=== PATIENT | male | born 1945 | race Caucasian/White ===

== ENCOUNTER 2017-12-29 04:22 | Inpatient (IN) | payer OTHER, MEDICARE ==
[~2017-12-29] VITALS: Ht 172.7 cm; Wt 124.4 kg
[~2017-12-29 04:22] MED LIST: AMLODIPINE BESYL5 M1 PO; ATENOLOL50 M1 PO; CELEBREX200 M1 PO; CHLORDIAZEPOXID25 M3 PO; NEURONTIN300 M1 PO; ULTRAM50 M1 PO
--- NOTE | 2017-12-29 10:06 | Admission Core Measures ---
Acute Coronary Syndrome (CM) ACS Core Measures Acute Coronary Syndrome Diagnosis No Congestive Heart Failure (NEW) CHF Core Measures Congestive Heart Failure Diagnosis No Cerebrovascular Accident (NEW) CVA Core Measures CVA/TIA Diagnosis No Venous Thromboembolism VTE Core Soumya (View Protocol) VTE Risk Factors Surgery No Mechanical VTE Prophylaxis d/t N/A MechProphylax Ordered No VTE Pharm Prophylaxis d/t NA PharmProphylax ordered Problem List As ranked by this Provider includes Assessment & Plan 1. Unilateral primary osteoarthritis, right hip HOME MEDS Home Med List Amlodipine Besylate 5 MG TABLET 1 TAB PO DAILY BP (Reported) Atenolol 50 MG TABLET 1 TAB PO DAILY BP (Reported) Celecoxib (Celebrex) 200 MG CAPSULE 1 CAP PO DAILY DEPRESSION (Reported) Chlordiazepoxide HCl 25 MG CAPSULE 2 CAP PO QPM BP (Reported) Gabapentin (Neurontin) 300 MG CAPSULE 1 CAP PO TID PAIN (Reported) Tramadol HCl (Ultram) 50 MG TABLET 1 TAB PO BIDP PRN PAIN (Reported)
--- NOTE | 2017-12-29 10:25 | Surg Short-stay <48hrs Dis Sum ---
Visit Information Visit Dates Admission Date: 12/29/17 Discharge Date: 01/01/18 Surgical Short Stay DC Summary Admission Diagnosis: Primary osteoarthritis right hip Final Diagnosis: Same, status post right total hip arthroplasty Procedure(s): Right total hip arthroplasty Summary/Significant Findings: Patient was admitted to the hospital for an elective total right hip replacement. Procedure was tolerated well and patient was transferred to a general surgical floor. Diet was advanced and tolerated. Physical therapy performed evaluation and treatment. At time of hospital discharge, vital signs were stable, neurovascular status was intact, and pain was controlled with the use of oral pain medications. Condition at Discharge: Stable Discharge Disposition: SNF Discharge instructions provided to patient/family: Yes Post discharge follow-up plan: Follow up with Dr. Jackson in 6 weeks from date of surgery. Please call his office to schedule/confirm this appointment.
[2017-12-29] MEDS ORDERED: PROTONIX20 M1 PO (10:27)
[2017-12-29] MEDS ORDERED: MIRALAX17 G1 PO (10:27)
[2017-12-29] MEDS ORDERED: COLACE100 M1 PO (10:27)
--- NOTE | 2017-12-29 10:29 | Patient Discharge Instructions ---
Discharge Instructions General Discharge Information You were seen/treated for: Right hip pain related to osteoarthritis You had these procedures: Right total hip arthroplasty Watch for these problems: Worsening pain despite pain medications Inability to bear wear on operative leg Redness or drainage from incision Fever > 101 F Other wound care: Keep incision clean and dry. Dressing will be changed 48hr after surgery, then you may shower. Do not soak wound- no tub baths/swimming. Daily dry dressings recommended. Watch for signs of wound infection Special Instructions: Take Aspirin, as prescribed for clot prevention Take Miralax and Colace to prevent constipation. Take Dilaudid, as needed for pain control. Take Protonix for GI protection while taking high dose aspirin. Diet Continue normal diet: Yes Activity Activity Self Limited: Yes Activity Limited to: Weight bear as tolerated Additional ACTIVITY Info: Use rolling walker as needed Acute Coronary Syndrome Inclusion Criteria At DC or during hospital stay patient has or had the following: ACS DIAGNOSIS No Discharge Core Measures Meds if any: Prescribed or Continued at Discharge Meds if any: NOT Prescribed or Continued at Discharge Congestive Heart Failure Inclusion Criteria At DC or during hospital stay patient has or had the following: CHF DIAGNOSIS No Discharge Core Measures Meds if any: Prescribed or Continued at Discharge Meds if any: NOT Prescribed or Continued at Discharge Cerebrovascular accident Inclusion Criteria At DC or during hospital stay patient has or had the following: CVA/TIA Diagnosis No Discharge Core Measures Meds if any: Prescribed or Continued at Discharge Meds if any: NOT Prescribed or Continued at Discharge Venous thromboembolism Inclusion Criteria VTE Diagnosis No VTE Type NONE VTE Confirmed by (Test) NONE Discharge Core Measures - Per Current guidelines, there needs to be overlap - treatment for the first 5 days of Warfarin therapy. - If discharged on Warfarin prior to 5 days of - overlap therapy, the patient will need to be - assessed for post discharge needs including - *Post discharge parental anticoagulation - *Warfarin and/or parental anticoagulation education - *Follow up date to check INR post discharge At least 5 days overlap therapy as Inpatient No Meds if any: Prescribed or Continued at Discharge Note: Overlap Therapy is Warfarin and Anticoagulant Meds if any: NOT Prescribed or Continued at Discharge
[2017-12-29] MEDS ORDERED: ASPIRIN325 M2 PO (11:32)
[2017-12-29] MEDS ORDERED: DILAUDID2 M1 PO (11:32)
--- NOTE | 2017-12-29 14:35 | Operative Report ---
Operative/Inv Procedure Report Surgery Date: 12/29/17 Name of Procedure: Right total hip replacement Pre-Operative Diagnosis: Primary right hip DJD Post-Operative Diagnosis: Same Estimated Blood Loss: 300 Surgeon/Salon Coordinator: Manuel MALONEY,González Holder Anesthesia: block Operative/Procedure Note Note: Description of Procedure: The patient was taken to the operating room and positively identified. After induction of spinal anesthesia and administration of appropriate pre-operative antibiotics, the patient was positioned supine on the operating room table and all bony prominences were well padded. After performing a surgical timeout, the right lower extremity was prepped and draped in the usual sterile fashion. A direct anterior approach was made to the right hip. The incision was carried sharply through superficial soft tissues to the level of the fascia. Meticulous hemostasis was maintained with Bovie electocautery. The fascia over the tensor fascia rosy muscle was opened sharply and the interval between the TFL and the sartorius was entered bluntly taking care to stay lateral to the lateral femoral cutaneous nerve. Retractors were placed around the femoral neck and the pericapsular fat was identified. The ascending branches of the lateral femoral circumflex vessels were identified and carefully coagulated. The pericapsular fat and anterior capsule were then resected. A napkin ring osteotomy was performed and the femoral head was removed without difficulty. Attention was then turned to the acetabulum. After appropriate placement of retractors, the acetabulum was exposed. Soft tissue was cleaned from the acetabular margin and notch. Overhanging osteophytes were removed and the teardrop was exposed. The acetabulum was then sequentially reamed to accept a 60 mm Martita Tritanium hemispherical cluster shell. This was impacted into place in the appropriate position and a single screw was used for supplemental fixation. The cup was then fit with a 36 mm Trident X3 zero degree polyethylene insert. Attention was then turned to the femur. After performing the appropriate ligament releases, the proximal femur was exposed. It was then sequentially broached to accept a size 5 [place] Anato stem. This was trialed for leg length and stability. The trial component was removed and the final component was impacted into place. The trunnion was carefully cleaned and fit with a 36 mm, + 5 Biolox delta ceramic femoral head. The hip was reduced and put through a full range of motion and found to be stable. The articular space was then irrigated with sterile saline. The periarticular soft tissues were infilitrated with Marcaine. The fascial layer was closed with interrupted #1 vicryl suture and the skin was re-approximated with interrupted 2 -0 vicryl. The skin was closed with a running 3-0 V-Lock suture. Steri-strips and a sterile dressing were applied. The patient was awakened and taken to the recovery room in satisfactory condition.
--- NOTE | 2017-12-29 16:01 | RADIOLOGY REPORT ---
EXAMINATION: XR HIP, RIGHT CLINICAL INFORMATION: Status post total hip arthroplasty. COMPARISON: None TECHNIQUE: Two views of the right hip. FINDINGS: Evaluation on the crosstable lateral view is significantly limited. The patient is status post total hip arthroplasty with the prosthetic components well seated within the [place] bones. Alignment is anatomic. No hardware failure or [place] bone fracture is seen. Some chucho are seen projected over the right groin. IMPRESSION: Anatomic alignment status post total hip arthroplasty with no hardware failure or [place] bone fracture seen.
--- NOTE | 2017-12-29 16:45 | PN- Orthopedic ---
Subjective Subjective: POC Feeling well, minimal pain. no n/v/cp/sob. no oob yet. dtv postop. in pacu, awaiting room assignment . hungry Objective Vital Signs and I&Os Intake & Output HR: 76 BP: 134/57 12/29 1600 12/29 0800 12/29 0000 12/28 1600 12/28 0800 12/28 0000 Intake Total Output Total Balance Patient 260 lb Weight Physical Exam: GEN- NAD CARD- S1S2 RRR PULM- CTAB ABD- obese, soft nt EXT- R hip dressing CDI, nt, ice pack in place. calves soft nt, alps on. feet warm. gross sensation intact/equal bl. +dorsi/plantar flexion equal bl Assessment/Plan Assessment/Plan A- POD0 sp R DOMENIC, with controlled pain, due to void/eat/ambulate postop, otherwise stable P- prn pain meds home meds pt, wbat, oob ivf due to void strict I&Os asa 325bid reg diet as tolerated dsg change pod2 will dw attending Core Measures Venous Thromboembolism VTE Risk Factors Surgery No Mechanical VTE Prophylaxis d/t N/A MechProphylax Ordered No VTE Pharm Prophylaxis d/t NA PharmProphylax ordered
[2017-12-29 22:12] VITALS: BP 118/78
[2017-12-29 23:40] VITALS: BP 118/77
[2017-12-30 02:04] VITALS: BP 90/70
[2017-12-30 07:04] VITALS: BP 113/63
[2017-12-30 08:00] VITALS: BP 113/63
[2017-12-30 08:39] LABS: ABSOLUTE BASOPHIL COUNT 0 /CUMM (0.0-0.2); ABSOLUTE EOSINOPHIL COUNT 0 /CUMM (0.0-0.7); ABSOLUTE GRANULOCYTE CT 9.6 /CUMM (1.4-6.5); ABSOLUTE LYMPH COUNT 1.1 /CUMM (1.2-3.4); ABSOLUTE MONOCYTE COUNT 1.9 /CUMM (0.10-0.60); BASOPHIL % 0 % (0.0-2.0); EOSINOPHIL % 0.1 % (0-5); GRANULOCYTE % 75.9 % (42.2-75.2); HEMATOCRIT 31.1 % (42-52); MEAN CORPUSCULAR HGB 34.7 PG (27.0-31.0); MEAN PLATELET VOLUME 9.8 FL (7.4-10.4); PLATELET COUNT 126 /CUMM (130-400); RBC DISTRIBUTION WIDTH 13.4 % (11.5-14.5); RED BLOOD CELL CT 3.05 /CUMM (4.70-6.10); WHITE BLOOD CELL COUNT 12.6 /CUMM (4.8-10.8)
--- NOTE | 2017-12-30 08:43 | PN- Orthopedic ---
Subjective Subjective: Awake,, alert No specific complaints Pain is tolerable with meds Has not ambulated with PT yet - finished late yesterday Objective Vital Signs and I&Os Vital Signs Date Time Temp Pulse Resp B/P B/P Pulse O2 O2 Flow FiO2 Mean Ox Delivery Rate 12/30 0704 97.8 74 20 113/63 97 Room Air 12/30 0204 97.9 69 20 90/70 98 CPAP 12/30 0021 66 96 12/30 0000 96 CPAP 2.0L 12/29 2340 98.0 83 20 118/77 98 CPAP 12/29 2225 64 97 12/29 2212 98.0 80 18 118/78 98 Nasal 2.0L Cannula 12/29 2148 Nasal 2.0L Cannula 12/29 1745 97 Nasal 2.0L Cannula Intake & Output 12/30 1600 12/30 0800 12/30 0000 12/29 1600 12/29 0800 12/29 0000 Intake Total 710 465 Output Total 250 600 Balance 460 -135 Intake, IV 650 225 Intake, Oral 60 240 Output, Urine 250 600 Patient 260 lb Weight Weight Reported by Patient Measurement Method Physical Exam: vss, afebrile General: alert and oriented times three Chest: clear anteriorly bilaterally, RRR Abd: soft, good bs Ext: warm, no edema, no calf tenderness, normosensate, good 5/5 MALA BLE Wd: dressed, dry Current Medications: Current Medications Sig/David Start time Last Medication Dose Route Stop Time Status Admin Acetaminophen 0 .STK-MED ONE 12/29 0931 DC PO Acetaminophen 975 MG ONCE 12/29 0000 DC PO 12/29 2358 Amlodipine Besylate 5 MG DAILY 12/30 1000 AC PO Aspirin 325 MG BID 12/29 2200 AC 12/29 PO 2205 Atenolol 50 MG DAILY 12/30 1000 CAN PO Atenolol 25 MG BID 12/30 1000 AC PO Cefazolin Sodium 2 GM IQ8 12/29 1600 DC 12/30 N/A 1 UNIT IV 12/30 0029 0011 Cefazolin Sodium 3,000 MG ONCE 12/29 0000 DC IV 12/29 235 Chlordiazepoxide HCl 50 MG QPM 12/29 2200 AC 12/29 PO 220 Dexamethasone 4 MG .STK-MED ONE 12/29 1122 DC IM 12/29 1123 Dextrose/Sodium 1,000 ML .[id number] 12/29 1815 DC 12/30 Chloride IV 0434 Docusate Sodium 100 MG BID 12/29 2200 AC 12/29 PO 2204 Fentanyl Citrate 100 MCG .STK-MED ONE 12/29 1122 DC IM 12/29 1123 Gabapentin 300 MG Q8 12/29 1400 AC 12/30 PO 0554 Hydromorphone HCl 2 MG Q4P PRN 12/29 1815 AC 12/29 PO 1836 Hydromorphone HCl 4 MG Q4P PRN 12/29 1815 AC 12/30 PO 0554 Lorazepam 0 Q1P PRN 12/29 2000 AC IV Midazolam HCl 2 MG .STK-MED ONE 12/29 1122 DC IM 12/29 1123 Morphine Sulfate 2 MG Q2P PRN 12/29 1815 AC 12/29 IV 2204 Ondansetron HCl 4 MG Q6P PRN 12/29 1815 AC IV Oxycodone HCl 0 .STK-MED ONE 12/29 0932 DC PO Oxycodone HCl 10 MG ONCE 12/29 0000 DC PO 12/29 2359 Polyethylene Glycol 17 GM DAILY 12/30 1000 AC PO Polyethylene Glycol 17 GM DAILY NEEDED PRN 12/29 1815 DC PO Promethazine HCl 12.5 MG Q6P PRN 12/29 1815 AC IV 01/05 1014 Tranexamic Acid 2,000 MG .STK-MED ONE 12/29 1121 DC IV 12/29 1122 Assessment/Plan Assessment/Plan 72yo male s/p R THR pod 1 asa 325mg po bid for dvt ppx pain management PT - WBAT dc planning - likely rehab Core Measures Venous Thromboembolism VTE Risk Factors Surgery No Mechanical VTE Prophylaxis d/t N/A MechProphylax Ordered No VTE Pharm Prophylaxis d/t NA PharmProphylax ordered
[2017-12-30 10:00] VITALS: BP 113/63
[2017-12-30 16:28] VITALS: BP 124/70
[2017-12-30 22:29] VITALS: BP 118/68
[2017-12-31 06:04] VITALS: BP 110/70
--- NOTE | 2017-12-31 12:42 | PN- Orthopedic ---
Subjective Subjective: No acute overnight events reported. Pain has been controlled. Denies chest pain, shortness of breath and difficulty breathing. Denies nasuea and vomitting. Has been voiding. Has been ambulating. Objective Vital Signs and I&Os Vital Signs Date Time Temp Pulse Resp B/P B/P Pulse O2 O2 Flow FiO2 Mean Ox Delivery Rate 12/31 0838 98.1 60 20 110/70 12/31 0837 98.1 60 20 110/70 12/31 0604 98.1 60 20 110/70 98 Room Air 12/30 2229 97.7 74 18 118/68 94 Room Air 12/30 2145 140/76 12/30 1628 98.7 78 18 124/70 97 Room Air 12/30 1441 Room Air Intake & Output 12/31 1600 12/31 0812/31 0000 12/30 1600 12/30 0800 12/30 0000 Intake Total 480 1010 710 465 Output Total 300 600 600 250 600 Balance -300 -120 410 460 -135 Intake, IV 10 650 225 Intake, Oral 480 1000 60 240 Number 1 0 Bowel Movements Output, Urine 300 600 600 250 600 Patient 274 lb 260 lb Weight Weight Reported by Patient Measurement Method Physical Exam: General: Alert and oriented x3, no acute distress Cardiac: RRR, s1s2 Pulm: CTA bialterally ABD: Non-tender, non-distended Extremities: Moves all extremities, distal sensation grossly intact. Skin warm and well perfused. DP pulses palpable bialterally. Bilateral calves soft and non-tender. Surgical site: Right hip. Dressing stained, dry. Thigh compartment soft, ecchymotic. New dressing applied. Assessment/Plan Assessment/Plan This is a 72 year old male, POD 2, s/p R THR. PMH signficant for depression Ortho stable Core Measures Venous Thromboembolism VTE Risk Factors Surgery No Mechanical VTE Prophylaxis d/t N/A MechProphylax Ordered No VTE Pharm Prophylaxis d/t NA PharmProphylax ordered
[2017-12-31 14:03] VITALS: BP 124/78
[2017-12-31 22:00] VITALS: BP 117/60
[2018-01-01 07:17] VITALS: BP 114/62
--- NOTE | 2018-01-01 08:10 | PN- Orthopedic ---
Subjective Subjective: Patient reports postop pain, which is well controlled. Tolerating a diet, without any nausea or vomiting. Ambulating with PT. Passing flatus and voiding spontanously, denies BM. Denies msucle cramps, spasms or headache. Offers no other complaints. Objective Vital Signs and I&Os Vital Signs Date Time Temp Pulse Resp B/P B/P Pulse O2 O2 Flow FiO2 Mean Ox Delivery Rate 01/01 914 97.9 63 18 114/62 01/01 0914 114/62 01/01 0717 97.9 63 18 114/62 97 12/31 2200 98.7 71 18 117/60 95 Room Air 12/31 2109 72 117/60 12/31 1403 99.3 87 20 124/78 92 Room Air Intake & Output 01/01 1600 01/01 0800 01/01 0000 12/31 1600 12/31 0800 12/31 0000 Intake Total 350 450 880 480 Output Total 850 500 675 300 600 Balance -500 -50 205 -300 -120 Intake, Oral 350 450 880 480 Number 1 Bowel Movements Output, Urine 850 500 675 300 600 Patient 274 lb Weight Physical Exam: Gen - eating breakfast in nad Cardiac - S1S2 noted Lungs - CTAB Ext - R hip dressing c/d/i, moves all extremities, motor an sensory intact, compartment soft, alps/teds in place, no edema or calf tenderness Current Medications: Current Medications Sig/David Start time Last Medication Dose Route Stop Time Status Admin Amlodipine Besylate 5 MG DAILY 12/30 1000 AC 01/01 PO 0914 Aspirin 325 MG BID 12/29 2199 AC 01/01 PO 0914 Atenolol 25 MG BID 12/30 1000 AC 01/01 PO 0914 Bisacodyl 10 MG ONCE ONE 01/01 0845 DC 01/01 AL 01/01 0846 0913 Chlordiazepoxide HCl 50 MG QPM 12/29 2199 AC 12/31 PO 2111 Docusate Sodium 100 MG BID 12/29 2199 AC 01/01 PO 0914 Gabapentin 300 MG Q8 12/29 1400 AC 01/01 PO 0513 Hydromorphone HCl 2 MG Q4P PRN 12/29 181 AC 12/29 PO 1836 Hydromorphone HCl 4 MG Q4P PRN 12/29 1815 AC 01/01 PO 0913 Lorazepam 0 Q1P PRN 12/30 1999 AC IV Morphine Sulfate 2 MG Q2P PRN 12/29 181 DC 12/31 IV 2319 Ondansetron HCl 4 MG Q6P PRN 12/29 181 AC IV Polyethylene Glycol 17 GM DAILY 12/30 1000 AC 01/01 PO 0914 Potassium Chloride 20 MEQ BID 12/31 1155 AC 01/01 PO 0914 Promethazine HCl 12.5 MG Q6P PRN 12/29 181 AC IV 01/05 1014 Sodium Phosphate 1 UNIT ONCE PRN 01/01 0845 AC AL Results Last 48 Hours of Labs: Laboratory Tests 01/01 0748 Chemistry Sodium (137 - 145 mmol/L) 131 L Potassium (3.5 - 5.1 mmol/L) 3.8 Chloride (98 - 107 mmol/L) 93 L Carbon Dioxide (22 - 30 mmol/L) 30 Anion Gap (5 - 16) 7 BUN (9 - 20 mg/dL) 12 Creatinine (0.7 - 1.2 mg/dL) 0.7 Estimated GFR (>60 ml/min) > 60 BUN/Creatinine Ratio (7 - 25 %) 17.1 Assessment/Plan Assessment/Plan 72 M POD 3 s/p R THR who is recovering well, hyponatremia noted, asx at this time Reg diet Pain regimen prn Sodium chloride tab 1000 mg once Dulcolax/fleet enema for constipation Asa 325mg po bid for dvt ppx PT, WBAT Repeat bep wednesday to recheck hyponatremia Anticipate d/c to rehab today Core Measures Venous Thromboembolism VTE Risk Factors Surgery No Mechanical VTE Prophylaxis d/t N/A MechProphylax Ordered No VTE Pharm Prophylaxis d/t NA PharmProphylax ordered
[2018-01-01 11:20] VITALS: BP 114/62
== END 2018-01-01 13:50 | DRG 470 ==
LOC: SDA 04:22 → 2NB 04:22 → ENRESERV 16:19 → ENTRNSPT 17:23 → EDTRNSPTSTS 17:29 → EDTRNSPT 17:29 → 2NB 17:35 → CMPTRNSPT 17:44 → ENPENDDIS 01-01 10:23 → 2NB 01-01 13:50
PROVIDERS: Physician Assistant Surgical
PROC: 0SR904A Replacement of Right Hip Joint with Ceramic on Polyethylene Synthetic Substitute, Uncemented, Open Approach (ICD-10-PCS; principal; 2017-12-29)
PROC: 5A09357 Assistance with Respiratory Ventilation, Less than 24 Consecutive Hours, Continuous Positive Airway Pressure (ICD-10-PCS; 2017-12-29)
DX: M16.11 Unilateral primary osteoarthritis, right hip (principal); E87.1 Hypo-osmolality and hyponatremia; E11.9 Type 2 diabetes mellitus without complications; G47.33 Obstructive sleep apnea (adult) (pediatric); Z96.642 Presence of left artificial hip joint; J45.909 Unspecified asthma, uncomplicated; K21.9 Gastro-esophageal reflux disease without esophagitis; I10 Essential (primary) hypertension; Z90.49 Acquired absence of other specified parts of digestive tract; Z90.89 Acquired absence of other organs; Z87.891 Personal history of nicotine dependence; G60.9 Hereditary and idiopathic neuropathy, unspecified
CPT/HCPCS: 2NSBP; 36415; 36592; 73502-RT; 82436; 88304; 97110-GO; 97116-GO; 97161-GP; 97530-GO; J0690; J0735; J1100; J2550; J7042

== ENCOUNTER 2018-01-14 17:02 | Inpatient (IN) | payer OTHER, MEDICARE ==
[~2018-01-14] VITALS: Ht 172.7 cm; Wt 119.9 kg
[~2018-01-14 17:02] MED LIST changes: +ASPIRIN325 M2 PO; +COLACE100 M1 PO; +DILAUDID2 M1 PO; +MIRALAX17 G1 PO; +PROTONIX20 M1 PO
--- NOTE | 2018-01-14 19:59 | History & Physical Pre-Op ---
General Information and HPI MD Statement: I have seen and personally examined HA SCHUMACHER V and documented this H&P. The patient is a 72 year old M who presented with a patient stated chief complaint of right hip erythema and drainage. Source of Information: patient, old records Exam Limitations: no limitations History of Present Illness: Pt is a 72 yo M with a hx of morbid obesity (BMI 41), SANCHO (has cpap, but doesn't use it), hypertension, borderline DM (no meds), peripheral neuropathy, DJD/OA, sciatica, who is s/p Right total hip replacement on 12/29/[address] Jackson. His inpatient postop course was uneventful and he was discharged to short term rehab on 01/01/18, where he stayed for about 4 nights and was eventually discharged home with nursing services. Pt states that he noticed some erythema starting yesterday, followed by significant drainage of "thin, bloody fluid" from his wound early this morning. He was later seen by Dr. Jackson in the office, who diagnosed him with a wound infection and scheduled direct admit in anticipation of OR washout tomorrow. He denies fevers or difficulty ambulating. Also denies headache, dizziness, chest pain, difficulty breathing. Of note, pt had a similar experience after his left hip arthroplasty (in....), requiring a picc line and IV antibiotics. He last took his aspirin last night and has been taking his Celebrex since returning home from rehab. He also discontinued Amlodipine after surgery due to low BP readings at home. He is pre- diabetic, but does not check his sugars at home. Allergies/Medications Allergies: Coded Allergies: No Known Allergies (12/28/17) PER PRE-OP ORDERS FROM [facility]. - 12/28/17 Home Med list Amlodipine Besylate 5 MG TABLET 1 TAB PO DAILY BP (Reported) Aspirin (Aspirin*) 325 MG TABLET 1 TAB PO BID ANTI-COAGULATION Atenolol 50 MG TABLET 1 TAB PO DAILY BP (Reported) Celecoxib 200 MG CAPSULE 1 CAP PO BID pain (Reported) Chlorthalidone 25 MG TABLET 1 TAB PO DAILY BP (Reported) Docusate Sodium (Colace) 100 MG CAPSULE 1 CAP PO BID CONSTIPATION Gabapentin (Neurontin) 300 MG CAPSULE 1 CAP PO TID PAIN (Reported) Hydromorphone HCl (Dilaudid) 2 MG TABLET 1-2 TAB PO Q4-6 PRN PAIN Pantoprazole Sodium (Protonix) 20 MG TABLET.DR 1 TAB PO DAILY GI PROTECTION Polyethylene Glycol 3350 (Miralax) 17 GRAM POWD.PACK 1 PAC PO DAILY CONSTIPATION dissolve in water Past History Medical History Blood Transfusion Hx: No Neurological: peripheral neuropathy, vertigo EENT: NONE Cardiovascular: hypertension Respiratory: obstructive sleep apnea Gastrointestinal: GERD Hepatic: NONE Renal: NONE Musculoskeletal: degen joint disease, osteoarthritis, sciatica Psychiatric: NONE Endocrine: BORDERLINE DM Blood Disorders: NONE Cancer(s): NONE History of MRSA: No History of VRE: No History of CDIFF: No Isolation History: Standard Surgical History Pertinent Surgical History: appendectomy, hernia repair-umbilical, LEFT HIP REPLACE RIGHT HIP REPLACEMENT Past Family/Social History Psychosocial History Where Do You Live? Home Smoking Status: Former Smoker ETOH Use: daily (3 beers daily) Functional Ability Ambulation: independent Review of Systems Review of Systems: Positive for right hip pain, redness, drainage, leg swelling (R>L) and bruising. He has a baseline peripheral neuropathy. Negative for fevers, headache, dizziness, chest pain, shortness of breath, difficulty bearing weight, weakness. Exam & Diagnostic Data Physical Exam: Gen: Pt is awake and alert, in no acute distress. He is morbidly obese. Cardiac: Regular. Pulmonary: Clear to auscultation bilaterally. Extremities: The right hip incision is intact, except for a small 3-4 mm opening which was previously draining fluid, and has since formed a scab. A few steri strips remain. No active drainage is observed or able to be expressed. There is significant surrounding erythema spanning across the entire anterior thigh from the level of the groin crease down to the inferior aspect of the surgical incision site. There is also significant edema of bilateral lower extremities, right greater than left. There is ecchymosis of the medial right knee area with associated tenderness. Assessment/Plan Assessment/Plan: Pt is a 72 yo M with a hx of morbid obesity (BMI 41), SANCHO (has cpap, but doesn't use it), hypertension, borderline DM (no meds), peripheral neuropathy, DJD/OA, sciatica, who is 16 days s/p Right anterior DOMENIC by Dr. Jackson, now complicated by postop wound infection. Plan: -Patient will require surgical intervention of the right hip, with exploration and washout, possible hardware removal. Dr. Jackson has already discussed the details of this procedure with the patient. -Admit to general medical floor. -Nothing by mouth after midnight with a low rate of IV fluids. -Will check CBC, electrolytes, coags, type and screen, and EKG preoperatively. We will also check a fasting blood sugar in the morning. -Patient may ambulate as desired. -Pain control with Tylenol or Dilaudid as needed. -Alps for DVT prophylaxis. Hold aspirin in anticipation of surgery tomorrow. Patient has also been taking his Celebrex at home, which will also be held. -Home meds resumed, except for amlodipine which patient has stopped at home due to hypotension. If blood pressure becomes an issue, consider restarting amlodipine. -Patient has significant swelling and tenderness in the right lower extremity, which is consistent with normal postoperative changes and wound infection. I discussed the possible need for doppler with Dr. Jackson, which will be considered after surgery tomorrow. Of note, review of records indicates that pt may have been off of his Chlorthalidone while inpatient and at rehab, possibly potentiating baseline edema. - As Ranked By This Provider Problem List: 1. Postoperative wound infection of right hip
[2018-01-14] MEDS ORDERED: CELECOXIB200 M1 PO (20:39)
[2018-01-14] MEDS ORDERED: CHLORTHALIDONE25 M1 PO (21:15)
[2018-01-14 21:34] LABS: ABSOLUTE BASOPHIL COUNT 0.1 /CUMM (0.0-0.2); ABSOLUTE EOSINOPHIL COUNT 0.4 /CUMM (0.0-0.7); ABSOLUTE LYMPH COUNT 2.1 /CUMM (1.2-3.4); ABSOLUTE MONOCYTE COUNT 1.4 /CUMM (0.10-0.60); BASOPHIL % 0.4 % (0.0-2.0); GRANULOCYTE % 71.9 % (42.2-75.2); HEMATOCRIT 36.3 % (42-52); MEAN CORPUSCULAR HGB 33.3 PG (27.0-31.0); MEAN CORPUSCULAR HGB CONC 33.5 G/DL (33.0-37.0); MEAN CORPUSCULAR VOLUME 99.4 FL (80.0-94.0); MEAN PLATELET VOLUME 9.1 FL (7.4-10.4); PLATELET COUNT 342 /CUMM (130-400); RBC DISTRIBUTION WIDTH 14.4 % (11.5-14.5); RED BLOOD CELL CT 3.66 /CUMM (4.70-6.10); WHITE BLOOD CELL COUNT 13.9 /CUMM (4.8-10.8)
[2018-01-14 21:42] LABS: PT 12.8 SEC (9.4-12.5)
[2018-01-14 22:40] VITALS: BP 124/64
[2018-01-15 06:22] VITALS: BP 126/72
--- NOTE | 2018-01-15 07:54 | Admission Core Measures ---
Acute Coronary Syndrome (CM) ACS Core Measures Acute Coronary Syndrome Diagnosis No Congestive Heart Failure (NEW) CHF Core Measures Congestive Heart Failure Diagnosis No Cerebrovascular Accident (NEW) CVA Core Measures CVA/TIA Diagnosis No Venous Thromboembolism VTE Core Soumya (View Protocol) VTE Risk Factors Age>40 No Mechanical VTE Prophylaxis d/t N/A MechProphylax Ordered No VTE Pharm Prophylaxis d/t Surgical Contraindication Problem List As ranked by this Provider includes Assessment & Plan 1. Postoperative wound infection of right hip HOME MEDS Home Med List Amlodipine Besylate 5 MG TABLET 1 TAB PO DAILY BP (Reported) Aspirin (Aspirin*) 325 MG TABLET 1 TAB PO BID ANTI-COAGULATION Atenolol 50 MG TABLET 1 TAB PO DAILY BP (Reported) Celecoxib 200 MG CAPSULE 1 CAP PO BID pain (Reported) Chlorthalidone 25 MG TABLET 1 TAB PO DAILY BP (Reported) Docusate Sodium (Colace) 100 MG CAPSULE 1 CAP PO BID CONSTIPATION Gabapentin (Neurontin) 300 MG CAPSULE 1 CAP PO TID PAIN (Reported) Hydromorphone HCl (Dilaudid) 2 MG TABLET 1-2 TAB PO Q4-6 PRN PAIN Pantoprazole Sodium (Protonix) 20 MG TABLET.DR 1 TAB PO DAILY GI PROTECTION Polyethylene Glycol 3350 (Miralax) 17 GRAM POWD.PACK 1 PAC PO DAILY CONSTIPATION
--- NOTE | 2018-01-15 07:58 | PN- Orthopedic ---
Subjective Subjective: No significant change, pain is controlled, no fever or flulike illness, no systemic signs of infection. Objective Vital Signs and I&Os Vital Signs Date Time Temp Pulse Resp B/P B/P Pulse O2 O2 Flow FiO2 Mean Ox Delivery Rate 01/15 0622 97.9 67 20 126/72 95 Room Air 01/14 2240 98.1 73 20 124/64 95 Room Air Intake & Output 01/15 0800 01/15 0000 01/14 1600 01/14 0800 01/14 0000 01/13 1600 Intake Total 545 300 Output Total 450 Balance 95 300 Intake, IV 525 Intake, Oral 20 300 Output, Urine 450 Patient 264 lb 266 lb Weight Weight Reported by Patient Measurement Method Physical Exam: Well-developed well-nourished no apparent distress. HEENT: Atraumatic, extraocular motion intact Neck: Supple, no lymphadenopathy Respiratory: No respiratory distress Extremities: Right lower extremity 2+ pitting edema Right hip, proximal thigh with significant erythema warmth and swelling consistent with cellulitis. Thin sanguinous drainage from the wound. Ecchymosis noted around the knee. Tenderness in the hip and proximal thigh area is mild to moderate 1+ pitting edema left lower extremity Neuro: Alert and oriented x3 Psych: Mood affect normal, normal memory normal judgment. 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
--- NOTE | 2018-01-15 11:58 | Operative Report ---
Operative/Inv Procedure Report Surgery Date: 01/15/18 Name of Procedure: Right hip exploration and non-excisional irrigation and debridement Pre-Operative Diagnosis: Right hip wound infection Post-Operative Diagnosis: Same Estimated Blood Loss: 50ml to 100ml Surgeon/Superintendent Operations Division: González Jackson MD Anesthesia: laryngeal mask airway Specimens: 1. Superficial wound swab 2. Joint fluid Operative/Procedure Note Note: Indications: The patient is 2 weeks status post right total hip replacement. He presents with 36 hours of redness around the incision and approximately 6 hours of drainage from the incision. Description of procedure: The patient was taken to the operating room and positively identified. After induction of general anesthesia he was positioned supine on the operating table and all bony problems as well padded. The lower extent was then prepped and draped in the usual sterile fashion. Preoperative antibiotics were not administered at this moment. The incision was opened superficially and purulent material was encountered. This was evacuated in all retained suture material was removed. Swab specimens of the superficial purulence were obtained. IV antibiotics were started. The wound bed was thoroughly explored and then irrigated. The fascial layer appeared to be fully sealed. After the wound bed was fully irrigated, an 18- gauge spinal needle was passed into the hip joint. Approximately 10 mL of bloody fluid was obtained and sent for culture. A gram of vancomycin powder was placed in the superficial wound bed as was a #10 Ivan-Mcdowell drain. The wound was closed with #2 nylon retention sutures followed by 2-0 Vicryl and chucho. Dressing was placed, the patient was awakened and taken to the recovery room in satisfactory condition.
[2018-01-15 14:51] VITALS: BP 120/85
--- NOTE | 2018-01-15 15:14 | ULTRASOUND REPORT ---
EXAMINATION: US TRIPLEX OF LOWER EXTREMITIES, BILATERAL CLINICAL INFORMATION: Bilateral lower extremity edema, swelling. COMPARISON: None TECHNIQUE: Color-flow triplex imaging with spectral analysis and compression Doppler were performed on the lower extremities. FINDINGS: Respiratory variation, normal compression and augmented flow are noted throughout the lower extremities. The visualized common femoral vein, superficial femoral vein, profunda femoral vein, popliteal vein and midcalf peroneal and posterior tibial venous segments show no evidence of deep venous thrombosis. There is no Stout's cyst. IMPRESSION: Normal triplex scan without evidence of deep venous thrombosis involving the lower extremities.
--- NOTE | 2018-01-15 17:11 | PN- Orthopedic ---
See Addendum Subjective Subjective: Postop check Patient comfortable, pain is controlled, no fever or flulike illness Objective Vital Signs and I&Os Vital Signs Date Time Temp Pulse Resp B/P B/P Pulse O2 O2 Flow FiO2 Mean Ox Delivery Rate 01/15 1451 97.7 75 18 120/85 96 Room Air 01/15 1250 120/60 01/15 0622 97.9 67 20 126/72 95 Room Air 01/14 2240 98.1 73 20 124/64 95 Room Air Intake & Output 01/15 1600 01/15 0800 01/15 0000 01/14 1600 01/14 0000 Intake Total 545 300 Output Total 700 450 Balance -700 95 300 Intake, IV 525 Intake, Oral 20 300 Output, Urine 700 450 Patient 264 lb 266 lb Weight Weight Reported by Patient Measurement Method Physical Exam: Well-developed well-nourished no apparent distress. HEENT: Atraumatic, extraocular motion intact Neck: Supple, no lymphadenopathy Respiratory: No respiratory distress Extremities: +2 pitting right lower extremity edema and +1 left lower extremity edema RIGHT lower extremity hip dressing in place, MOE drain in place, serous tenderness drainage noted, holding self suction Dressing clean dry and intact with minimal bloody staining Moderate swelling and erythema, looks to be slightly improved compared to this mornings preop evaluation. No shortening or rotation Hip range of motion is limited and without unexpected pain Neurovascularly intact distally Bilateral calves are supple, nontender. Neuro: Alert and oriented x3 Psych: Mood affect normal, normal memory normal judgment. Skin: Warm and dry, no rash on exposed skin Results Last 48 Hours of Labs: Laboratory Tests 01/15 01/14 01/14 1310 2054 2053 Chemistry Sodium (137 - 145 mmol/L) 136 L Potassium (3.5 - 5.1 mmol/L) 3.2 L Chloride (98 - 107 mmol/L) 91 L Carbon Dioxide (22 - 30 mmol/L) 32 H Anion Gap (5 - 16) 13 BUN (9 - 20 mg/dL) 13 Creatinine (0.7 - 1.2 mg/dL) 0.9 Estimated GFR (>60 ml/min) > 60 BUN/Creatinine Ratio (7 - 25 %) 14.4 Glucose (65 - 99 mg/dL) 107 H Cancelled C-Reactive Prot, Quant (<1.0 mg/dL) > 9.0 H Coagulation PT (9.4 - 12.5 SEC) 12.8 H INR (0.90 - 1.17) 1.17 Hematology CBC w Diff NO MAN DIFF REQ WBC (4.8 - 10.8 /CUMM) 13.9 H RBC (4.70 - 6.10 /CUMM) 3.66 L Hgb (14.0 - 18.0 G/DL) 12.2 L Hct (42 - 52 %) 36.3 L MCV (80.0 - 94.0 FL) 99.4 H MCH (27.0 - 31.0 PG) 33.3 H MCHC (33.0 - 37.0 G/DL) 33.5 RDW (11.5 - 14.5 %) 14.4 Plt Count (130 - 400 /CUMM) 342 MPV (7.4 - 10.4 FL) 9.1 Gran % (42.2 - 75.2 %) 71.9 Lymphocytes % (20.5 - 51.1 %) 14.7 L Monocytes % (1.7 - 9.3 %) 10.0 H Eosinophils % (0 - 5 %) 3.0 Basophils % (0.0 - 2.0 %) 0.4 Absolute Granulocytes (1.4 - 6.5 /CUMM) 10.0 H Absolute Lymphocytes (1.2 - 3.4 /CUMM) 2.1 Absolute Monocytes (0.10 - 0.60 /CUMM) 1.4 H Absolute Eosinophils (0.0 - 0.7 /CUMM) 0.4 Absolute Basophils (0.0 - 0.2 /CUMM) 0.1 ESR Westergren (0 - 10 MM) 74 H Assessment/Plan Assessment/Plan Postop day #0 status post irrigation and debridement right superficial hip wound infection. Aspiration taken from the joint, cultures are pending as well as superficial cultures are pending. Vancomycin to continue pending the culture results Heparin subcutaneous for DVT prophylaxis, ALPS Physical therapy, out of bed, weightbearing as tolerated Regular diet ESR and CRP performed for reference, 74 and >9 respectively CBC in the morning, BEP in the morning Nothing by mouth after midnight on Wednesday into Wednesday for potential return to the operating theater due to possible need of removal of hardware and antibiotic spacer placement if joint cultures grow positive Will need to restart aspirin 325 mg by mouth twice a day for DVT prophylaxis however hold off until we were sure he does not require another surgery, continue heparin subcutaneous for now Core Measures Venous Thromboembolism VTE Risk Factors Age>40 No Mechanical VTE Prophylaxis d/t N/A MechProphylax Ordered No VTE Pharm Prophylaxis d/t Surgical Contraindication
[2018-01-15 22:33] VITALS: BP 110/78
[2018-01-16 06:09] VITALS: BP 90/50
[2018-01-16 07:26] VITALS: BP 122/72
[2018-01-16 08:39] LABS: ABSOLUTE BASOPHIL COUNT 0.1 /CUMM (0.0-0.2); ABSOLUTE EOSINOPHIL COUNT 0.6 /CUMM (0.0-0.7); BASOPHIL % 0.9 % (0.0-2.0)
[2018-01-16 08:51] LABS: ABSOLUTE GRANULOCYTE CT 4.6 /CUMM (1.4-6.5); EOSINOPHIL % 7.3 % (0-5); GRANULOCYTE % 55.8 % (42.2-75.2); MEAN CORPUSCULAR HGB 33.6 PG (27.0-31.0); MEAN CORPUSCULAR HGB CONC 33.5 G/DL (33.0-37.0); MEAN CORPUSCULAR VOLUME 100.2 FL (80.0-94.0); MEAN PLATELET VOLUME 8.9 FL (7.4-10.4); PLATELET COUNT 292 /CUMM (130-400); RBC DISTRIBUTION WIDTH 14.2 % (11.5-14.5); RED BLOOD CELL CT 3.07 /CUMM (4.70-6.10); WHITE BLOOD CELL COUNT 8.2 /CUMM (4.8-10.8)
[2018-01-16 08:57] LABS: HEMATOCRIT 30.8 % (42-52)
--- NOTE | 2018-01-16 10:56 | PN- Orthopedic ---
Subjective Subjective: Awake, alert No complaints overnight Pain is well controlled with meds Tolerating diet, no nausea Objective Vital Signs and I&Os Vital Signs Date Time Temp Pulse Resp B/P B/P Pulse O2 O2 Flow FiO2 Mean Ox Delivery Rate 01/16 0834 78 120/50 01/16 0726 122/72 01/16 0609 98.4 75 20 90/50 95 Room Air 01/15 2233 98.1 67 20 110/78 95 01/15 1451 97.7 75 18 120/85 96 Room Air 01/15 1250 120/60 Intake & Output 01/16 1600 01/16 0801/16 0000 01/15 1600 01/15 0801/15 0000 Intake Total 240 1000 545 300 Output Total 500 580 470 700 450 Balance -500 -340 530 -700 95 300 Intake, IV 500 525 Intake, Oral 240 500 20 300 Output, 30 20 Drainage Output, Urine 500 550 450 700 450 Patient 264 lb 266 lb Weight Weight Reported by Patient Measurement Method Physical Exam: afebrile, vss General: alert and oriented times three Chest: clear anteriorly bilaterally, RRR Abd: soft, good bse Ext: normosensate, nontender, no edema Wd: dressing changed, surrounding erythema, nontender, retention sutures in place Current Medications: Current Medications Sig/David Start time Last Medication Dose Route Stop Time Status Admin Acetaminophen 650 MG .STK-MED ONE 01/16 2040 DC PO 01/15 204 Acetaminophen 650 MG Q4P PRN 01/14 2030 AC 01/15 PO 2040 Atenolol 50 MG DAILY 01/15 09 AC 01/16 PO 0834 Chlorthalidone 25 MG DAILY 01/15 09 AC 01/16 PO 0828 Dextrose/Sodium 1,000 ML .[id number] 01/15 0000 DC 01/14 Chloride IV 2316 Docusate Sodium 100 MG BID 01/15 09 AC 01/16 PO 0827 Gabapentin 300 MG TID 01/14 2100 AC 01/16 PO 0827 Heparin Sodium 5,000 UNIT Q8 01/15 2200 AC 01/16 (Porcine) SC 0511 Hydromorphone HCl 2 MG Q4P PRN 01/14 2030 AC 01/16 PO 1016 Hydromorphone HCl 4 MG Q4P PRN 01/14 2030 AC 01/16 PO 0546 Morphine Sulfate 4 MG .STK-MED ONE 01/15 1204 DC IM 01/15 1205 Polyethylene Glycol 17 GM DAILY 01/15 0900 AC 01/16 PO 0827 Potassium Chloride 40 MEQ ONCE ONE 01/15 1615 DC 01/15 PO 01/15 1616 1748 Vancomycin HCl 2,000 MG BID 01/15 2100 CAN IV Vancomycin HCl 2,000 MG Q12 01/15 2100 AC 01/16 Sodium Chloride 500 ML IV 0947 Results Last 48 Hours of Labs: Laboratory Tests 01/16 01/15 0720 1310 Chemistry Sodium (137 - 145 mmol/L) 135 L Potassium (3.5 - 5.1 mmol/L) 3.9 Chloride (98 - 107 mmol/L) 94 L Carbon Dioxide (22 - 30 mmol/L) 31 H Anion Gap (5 - 16) 11 BUN (9 - 20 mg/dL) 10 Creatinine (0.7 - 1.2 mg/dL) 0.7 Estimated GFR (>60 ml/min) > 60 BUN/Creatinine Ratio (7 - 25 %) 14.3 C-Reactive Prot, Quant (<1.0 mg/dL) > 9.0 H Hematology CBC w Diff NO MAN DIFF REQ WBC (4.8 - 10.8 /CUMM) 8.2 RBC (4.70 - 6.10 /CUMM) 3.07 L Hgb (14.0 - 18.0 G/DL) 10.3 L Hct (42 - 52 %) 30.8 L MCV (80.0 - 94.0 FL) 100.2 H MCH (27.0 - 31.0 PG) 33.6 H MCHC (33.0 - 37.0 G/DL) 33.5 RDW (11.5 - 14.5 %) 14.2 Plt Count (130 - 400 /CUMM) 292 MPV (7.4 - 10.4 FL) 8.9 Gran % (42.2 - 75.2 %) 55.8 Lymphocytes % (20.5 - 51.1 %) 23.8 Monocytes % (1.7 - 9.3 %) 12.2 H Eosinophils % (0 - 5 %) 7.3 H Basophils % (0.0 - 2.0 %) 0.9 Absolute Granulocytes (1.4 - 6.5 /CUMM) 4.6 Absolute Lymphocytes (1.2 - 3.4 /CUMM) 2.0 Absolute Monocytes (0.10 - 0.60 /CUMM) 1.0 H Absolute Eosinophils (0.0 - 0.7 /CUMM) 0.6 Absolute Basophils (0.0 - 0.2 /CUMM) 0.1 ESR Westergren (0 - 10 MM) 74 H 01/14 Chemistry Sodium (137 - 145 mmol/L) 136 L Potassium (3.5 - 5.1 mmol/L) 3.2 L Chloride (98 - 107 mmol/L) 91 L Carbon Dioxide (22 - 30 mmol/L) 32 H Anion Gap (5 - 16) 13 BUN (9 - 20 mg/dL) 13 Creatinine (0.7 - 1.2 mg/dL) 0.9 Estimated GFR (>60 ml/min) > 60 BUN/Creatinine Ratio (7 - 25 %) 14.4 Glucose (65 - 99 mg/dL) 107 H Cancelled Coagulation PT (9.4 - 12.5 SEC) 12.8 H INR (0.90 - 1.17) 1.17 Hematology CBC w Diff NO MAN DIFF REQ WBC (4.8 - 10.8 /CUMM) 13.9 H RBC (4.70 - 6.10 /CUMM) 3.66 L Hgb (14.0 - 18.0 G/DL) 12.2 L Hct (42 - 52 %) 36.3 L MCV (80.0 - 94.0 FL) 99.4 H MCH (27.0 - 31.0 PG) 33.3 H MCHC (33.0 - 37.0 G/DL) 33.5 RDW (11.5 - 14.5 %) 14.4 Plt Count (130 - 400 /CUMM) 342 MPV (7.4 - 10.4 FL) 9.1 Gran % (42.2 - 75.2 %) 71.9 Lymphocytes % (20.5 - 51.1 %) 14.7 L Monocytes % (1.7 - 9.3 %) 10.0 H Eosinophils % (0 - 5 %) 3.0 Basophils % (0.0 - 2.0 %) 0.4 Absolute Granulocytes (1.4 - 6.5 /CUMM) 10.0 H Absolute Lymphocytes (1.2 - 3.4 /CUMM) 2.1 Absolute Monocytes (0.10 - 0.60 /CUMM) 1.4 H Absolute Eosinophils (0.0 - 0.7 /CUMM) 0.4 Absolute Basophils (0.0 - 0.2 /CUMM) 0.1 Assessment/Plan Assessment/Plan POD 1 status post irrigation and debridement right superficial hip wound infection. Aspiration taken from the joint, cultures are pending as well as superficial cultures are pending. OR cultures just now returned staph await sensitivities Vancomycin to continue pending the culture results Consider isolation until sensitivities return Heparin subcutaneous for DVT prophylaxis, ALPS Physical therapy, out of bed, weightbearing as tolerated fu labs - wbc 8.2 today NPO after midnight for possible return to OR if cultures are positive Pt would like a review of his prior L knee infx treatment plan from a different location/ID - will obtain old records if possible tmrw (week) - Will need to restart aspirin 325 mg by mouth twice a day for DVT prophylaxis however hold off until we were sure he does not require another surgery, continue heparin subcutaneous for now Core Measures Venous Thromboembolism VTE Risk Factors Age>40 No Mechanical VTE Prophylaxis d/t N/A MechProphylax Ordered No VTE Pharm Prophylaxis d/t Surgical Contraindication
[2018-01-16 14:33] VITALS: BP 110/70
[2018-01-16 22:21] VITALS: BP 104/60
[2018-01-17 06:25] VITALS: BP 110/62
--- NOTE | 2018-01-17 08:45 | PN- Orthopedic ---
Subjective Subjective: PT IN BED, HAD JUICE THIS MORNING , HE REFUSED TO BE NPO FOR POSSIBLITY OF GOING TO THE OR TODAY. +BM, VOIDING, AMBULATING. DENIES FEVERS, CP/SOB Objective Vital Signs and I&Os Vital Signs Date Time Temp Pulse Resp B/P B/P Pulse O2 O2 Flow FiO2 Mean Ox Delivery Rate 01/17 0625 99.0 75 20 110/62 94 Room Air 01/16 2221 98.5 76 20 104/60 94 Room Air 01/16 1433 98.2 75 18 110/70 96 Room Air Intake & Output 01/17 1600 01/17 0801/17 0000 01/16 1600 01/16 0800 01/16 0000 Intake Total 0 250 005 032 2672 Output Total 240 300 500 580 470 Balance -240 -50 250 -340 530 Intake, IV 250 500 500 Intake, Oral 0 0 250 240 500 Output, 30 20 Drainage Output, Urine 240 300 500 550 450 Physical Exam: GEN-NAD RESP- CLEAR CARDIAC-RRR ABD- SOFT, NT EXT- DISTAL SENSORY AND MOTOR FUNCTION INTACT, HAS BASELINE NEUROPATHY, IS AT BASELINE. 2+ PITTING EDEMA, UNABLE TO APPRECIATE PULSES DUE TO EDEMA RIGHT HIP DRESSING CHANGED, MINIMAL DRAINAGE, SURROUNDING ERYTHEMA. DRAIN IN PLACE- 30CC/24H SEROSANG DRAINAGE Current Medications: Current Medications Sig/David Start time Last Medication Dose Route Stop Time Status Admin Acetaminophen 650 MG Q4P PRN 01/14 2030 AC 01/15 PO 204 Atenolol 25 MG BID 01/17 900 AC PO Atenolol 50 MG DAILY 01/15 0900 DC 01/16 PO 0834 Chlorthalidone 25 MG DAILY 01/15 900 AC 01/16 PO 08 Docusate Sodium 100 MG BID 01/15 900 AC 01/16 PO 0827 Gabapentin 300 MG TID 01/14 2100 AC 01/16 PO 203 Heparin Sodium 5,000 UNIT Q8 01/15 2200 AC 01/17 (Porcine) SC 0528 Hydromorphone HCl 2 MG Q4P PRN 01/14 2030 AC 01/16 PO 1440 Hydromorphone HCl 4 MG Q4P PRN 01/14 PO 0326 Polyethylene Glycol 17 GM DAILY 01/15 09 AC 01/16 PO 08 Vancomycin HCl 2,000 MG Q12 01/15 Sodium Chloride 500 ML IV 2038 Results Last 48 Hours of Labs: Laboratory Tests 01/17 01/16 01/15 0820 0720 1310 Chemistry Sodium (137 - 145 mmol/L) 135 L Potassium (3.5 - 5.1 mmol/L) 3.9 Chloride (98 - 107 mmol/L) 94 L Carbon Dioxide (22 - 30 mmol/L) 31 H Anion Gap (5 - 16) 11 BUN (9 - 20 mg/dL) 10 Creatinine (0.7 - 1.2 mg/dL) 0.7 Estimated GFR (>60 ml/min) > 60 BUN/Creatinine Ratio (7 - 25 %) 14.3 C-Reactive Prot, Quant (<1.0 mg/dL) > 9.0 H Hematology CBC w Diff Pending NO MAN DIFF REQ WBC (4.8 - 10.8 /CUMM) Pending 8.2 RBC (4.70 - 6.10 /CUMM) Pending 3.07 L Hgb (14.0 - 18.0 G/DL) Pending 10.3 L Hct (42 - 52 %) Pending 30.8 L MCV (80.0 - 94.0 FL) Pending 100.2 H MCH (27.0 - 31.0 PG) Pending 33.6 H MCHC (33.0 - 37.0 G/DL) Pending 33.5 RDW (11.5 - 14.5 %) Pending 14.2 Plt Count (130 - 400 /CUMM) Pending 292 MPV (7.4 - 10.4 FL) Pending 8.9 Gran % (42.2 - 75.2 %) 55.8 Lymphocytes % (20.5 - 51.1 %) 23.8 Monocytes % (1.7 - 9.3 %) 12.2 H Eosinophils % (0 - 5 %) 7.3 H Basophils % (0.0 - 2.0 %) 0.9 Absolute Granulocytes (1.4 - 6.5 /CUMM) 4.6 Absolute Lymphocytes (1.2 - 3.4 /CUMM) 2.0 Absolute Monocytes (0.10 - 0.60 /CUMM) 1.0 H Absolute Eosinophils (0.0 - 0.7 /CUMM) 0.6 Absolute Basophils (0.0 - 0.2 /CUMM) 0.1 ESR Westergren (0 - 10 MM) 74 H Recent Imaging Studies: SPEC #: [id number] LUDA: 01/15/18 STATUS: RES RECD: 01/15/[address]: González Jackson MD SOURCE: TRUNK/O.R. ENTR: 01/15/[address]: Magdi MALONEY,Nadeem PARSONSESC: HIP RIGHT ORDERED: TRUNK OR CULT COMMENT: ADDITIONAL INFORMATION: SUPERFICIAL SWAB BLOODY REC: RT HIP Procedure Result > GRAM STAIN Final 01/16/1859 WHITE BLOOD CELLS FEW GRAM POSITIVE COCCI FEW > TRUNK AREA OR CULTURE Preliminary 01/16/18 Heavy growth of: STAPH AUREUS ISOLATED NOTE THIS IS A PRELIMINARY REPORT: SPEC #: [id number] LUDA: 01/15/18 STATUS: RES RECD: 01/15/[address]: González Jackson MD SOURCE: TRUNK/O.R. ENTR: 01/15/[address]: Magdi MALONEY,Nadeem Eckert SPDESC: HIP RIGHT ORDERED: TRUNK OR CULT COMMENT: ADDITIONAL INFORMATION: JOINT FLUID 2ML BLOODY RT HIP FLUID Procedure Result > GRAM STAIN Final 01/16/18 WHITE BLOOD CELLS FEW OTHER NO ORGANISMS SEEN > TRUNK AREA OR CULTURE Preliminary 01/16/18 NO GROWTH AFTER 1 DAY Assessment/Plan Assessment/Plan 72YO M SP RIGHT HIP SUPERFICIAL I&D FOR WOUND INFECTION POD2 Aspiration taken from the joint-NO GROWTH SO FAR SUPERFICIAL CULTURES GROWING STAPH AUREUS-PRELIM RESULT awaiting sensitivities Vancomycin to continue pending the culture results labs pending Heparin subcutaneous for DVT prophylaxis, ALPS Physical therapy, out of bed, weightbearing as tolerated Will need to restart aspirin 325 mg by mouth twice a day for DVT prophylaxis however hold off until we were sure he does not require another surgery, continue heparin subcutaneous for now will discuss with attending Core Measures Venous Thromboembolism VTE Risk Factors Age>40 No Mechanical VTE Prophylaxis d/t N/A MechProphylax Ordered No VTE Pharm Prophylaxis d/t Surgical Contraindication
[2018-01-17 09:28] LABS: ABSOLUTE BASOPHIL COUNT 0.1 /CUMM (0.0-0.2); ABSOLUTE EOSINOPHIL COUNT 0.4 /CUMM (0.0-0.7); ABSOLUTE GRANULOCYTE CT 4.4 /CUMM (1.4-6.5); ABSOLUTE LYMPH COUNT 1.5 /CUMM (1.2-3.4); EOSINOPHIL % 5.8 % (0-5); GRANULOCYTE % 59.3 % (42.2-75.2); MEAN CORPUSCULAR HGB 33.7 PG (27.0-31.0); MEAN CORPUSCULAR VOLUME 98.9 FL (80.0-94.0); MEAN PLATELET VOLUME 8.8 FL (7.4-10.4); PLATELET COUNT 266 /CUMM (130-400); RBC DISTRIBUTION WIDTH 14.2 % (11.5-14.5); RED BLOOD CELL CT 3.03 /CUMM (4.70-6.10); WHITE BLOOD CELL COUNT 7.4 /CUMM (4.8-10.8)
[2018-01-17 15:06] VITALS: BP 120/80
[2018-01-17 23:01] VITALS: BP 122/78
[2018-01-18 06:39] VITALS: BP 124/62
[2018-01-18 09:04] VITALS: BP 124/80
--- NOTE | 2018-01-18 09:33 | Patient Discharge Instructions ---
Discharge Instructions General Discharge Information You were seen/treated for: right hip wound infection You had these procedures: Incision and drainage of right hip wound Watch for these problems: fever over 101 increased redness around wound drainage from wound inability to bear weight on right leg Call Surgeon to remove: Stitches No bath, but you may shower: Yes Other wound care: daily dry dressing change keep wound clean and dry Diet Continue normal diet: Yes Activity Activity Self Limited: Yes Activity Limited to: Weight bear as tolerated Acute Coronary Syndrome Inclusion Criteria At DC or during hospital stay patient has or had the following: ACS DIAGNOSIS No Discharge Core Measures Meds if any: Prescribed or Continued at Discharge Meds if any: NOT Prescribed or Continued at Discharge Congestive Heart Failure Inclusion Criteria At DC or during hospital stay patient has or had the following: CHF DIAGNOSIS No Discharge Core Measures Meds if any: Prescribed or Continued at Discharge Meds if any: NOT Prescribed or Continued at Discharge Cerebrovascular accident Inclusion Criteria At DC or during hospital stay patient has or had the following: CVA/TIA Diagnosis No Discharge Core Measures Meds if any: Prescribed or Continued at Discharge Meds if any: NOT Prescribed or Continued at Discharge Venous thromboembolism Inclusion Criteria VTE Diagnosis No VTE Type NONE VTE Confirmed by (Test) NONE Discharge Core Measures - Per Current guidelines, there needs to be overlap - treatment for the first 5 days of Warfarin therapy. - If discharged on Warfarin prior to 5 days of - overlap therapy, the patient will need to be - assessed for post discharge needs including - *Post discharge parental anticoagulation - *Warfarin and/or parental anticoagulation education - *Follow up date to check INR post discharge At least 5 days overlap therapy as Inpatient No Meds if any: Prescribed or Continued at Discharge Note: Overlap Therapy is Warfarin and Anticoagulant Meds if any: NOT Prescribed or Continued at Discharge
--- NOTE | 2018-01-18 10:28 | PN- Orthopedic ---
Subjective Subjective: pt sitting in chair, minimal pain. Denies fevers/chills. no cp/sob ambulating, voiding, tolerating reg diet Objective Vital Signs and I&Os Vital Signs Date Time Temp Pulse Resp B/P B/P Pulse O2 O2 Flow FiO2 Mean Ox Delivery Rate 01/18 0904 74 124/80 01/18 0639 97.9 62 20 124/62 94 Room Air 01/17 2301 98.7 72 20 122/78 95 Room Air 01/17 2120 75 120/80 01/17 1506 99.0 75 20 120/80 94 Intake & Output 01/18 1600 01/18 0800 01/18 0000 01/17 1600 01/17 0800 01/17 0000 Intake Total 038 694 4918 0 250 Output Total 1265 10 600 240 300 Balance -825 350 700 -240 -50 Intake, IV 80 500 250 Intake, Oral 360 360 800 0 0 Output, 15 10 Drainage Output, Urine 1250 600 240 300 Physical Exam: gen-NAD resp-clear cardiac-RRR ext- decreased erythema on right hip around wound, minimal drainage. MOE in place- 15cc serosang drainage in bulb, drain removed, clear dressing applied calf tenderness and pedal edema greater on right than left Current Medications: Current Medications Sig/David Start time Last Medication Dose Route Stop Time Status Admin Acetaminophen 650 MG Q4P PRN 01/14 2030 AC 01/15 PO 2040 Atenolol 25 MG BID 01/17 09 AC 01/18 PO 0904 Cefazolin Sodium 2 GM IQ8 01/17 1600 AC 01/18 N/A 1 UNIT IV 0902 Chlorthalidone 25 MG DAILY 01/15 09 AC 01/18 PO 0901 Docusate Sodium 100 MG BID 01/15 09 AC 01/16 PO 0827 Gabapentin 300 MG TID 01/14 2100 AC 01/18 PO 0904 Heparin Sodium 5,000 UNIT Q8 01/15 2200 AC 01/18 (Porcine) SC 0432 Hydromorphone HCl 2 MG Q4P PRN 01/14 2030 AC 01/17 PO 0941 Hydromorphone HCl 4 MG Q4P PRN 01/14 PO 0829 Polyethylene Glycol 17 GM DAILY 01/15 09 AC 01/16 PO 0827 Vancomycin HCl 2,000 MG Q12 01/15 2100 DC 01/17 Sodium Chloride 500 ML IV 0931 Results Last 48 Hours of Labs: Laboratory Tests 01/17 0820 Hematology CBC w Diff NO MAN DIFF REQ WBC (4.8 - 10.8 /CUMM) 7.4 RBC (4.70 - 6.10 /CUMM) 3.03 L Hgb (14.0 - 18.0 G/DL) 10.2 L Hct (42 - 52 %) 30.0 L MCV (80.0 - 94.0 FL) 98.9 H MCH (27.0 - 31.0 PG) 33.7 H MCHC (33.0 - 37.0 G/DL) 34.0 RDW (11.5 - 14.5 %) 14.2 Plt Count (130 - 400 /CUMM) 266 MPV (7.4 - 10.4 FL) 8.8 Gran % (42.2 - 75.2 %) 59.3 Lymphocytes % (20.5 - 51.1 %) 19.8 L Monocytes % (1.7 - 9.3 %) 14.1 H Eosinophils % (0 - 5 %) 5.8 H Basophils % (0.0 - 2.0 %) 1.0 Absolute Granulocytes (1.4 - 6.5 /CUMM) 4.4 Absolute Lymphocytes (1.2 - 3.4 /CUMM) 1.5 Absolute Monocytes (0.10 - 0.60 /CUMM) 1.0 H Absolute Eosinophils (0.0 - 0.7 /CUMM) 0.4 Absolute Basophils (0.0 - 0.2 /CUMM) 0.1 Assessment/Plan Assessment/Plan 72YO M SP RIGHT HIP SUPERFICIAL I&D FOR WOUND INFECTION POD2 Aspiration taken from the joint-NO GROWTH (final) SUPERFICIAL CULTURES GROWING STAPH AUREUS (final) DC to home on Augmentin for 3weeks DC drain dc on asa for dvt ppx Physical therapy, out of bed, weightbearing as tolerated Dr Jackson agrees with above plan and would like pt to FU with him in the office in 2 weeks Core Measures Venous Thromboembolism VTE Risk Factors Age>40 No Mechanical VTE Prophylaxis d/t N/A MechProphylax Ordered No VTE Pharm Prophylaxis d/t Surgical Contraindication
[2018-01-18] MEDS ORDERED: AUGMENTIN 875-1 EACH PO (10:33)
--- NOTE | 2018-01-18 11:05 | Surgical Discharge Summary ---
Visit Information Visit Dates Admission Date: 01/14/18 Discharge Date: 01/18/2018 History of Present Illness Chief Complaint: RIGHT HIP WOUND INFECTION Medical History Blood Transfusion Hx: No Neurological: peripheral neuropathy, vertigo EENT: NONE Cardiovascular: hypertension Respiratory: obstructive sleep apnea Gastrointestinal: GERD Hepatic: NONE Renal: NONE Musculoskeletal: degen joint disease, osteoarthritis, sciatica Psychiatric: NONE Endocrine: BORDERLINE DM Blood Disorders: NONE Cancer(s): NONE History of MRSA: No History of VRE: No History of CDIFF: No Isolation History: Standard Surgical History Pertinent Surgical History: appendectomy, hernia repair-umbilical, LEFT HIP REPLACE RIGHT HIP REPLACEMENT Psychosocial History Where Do You Live? Home Who Do You Live With? Patient/Self What is Your Primary Language? Malay ETOH Use: daily (3 beers daily) Review of Systems: no fever chills. no cp/sob no more paresthesias beyond baseline neuropathy no BLAND Hospital Course Course Attending Physician: González Stanford MD Primary Care Physician: Nadeem Fairbanks MD Hospital Course: [facility], SENT HERE BY DR STANFORD AFTER HE WAS DIagnosed with a right hip wound infection SP R DOMENIC on 12/29/17. He was started on IV antibiotics. On 01/15/18 he was taken to the OR for a Right hip exploration and non-excisional irrigation and debridement by Dr. Stanford. Superficial cultures were taken and aspiration on joint fluid was sent for culture and a drain was left in place. Pt tolerated the procedure well. Postoperatively, his pain was controlled, he ambulated and antibiotics were changed based on culture results and sensitivities and the drain was eventually pulled when appropriate. On post-op day#3 he was dischanged to home with health services and 3 weeks of Augmentin and with instructions to follow-up with Dr. Stanford in 2 weeks. Discharge instructions were reviewed with the pt and he agreed to call Dr Stanford's office with any questions or concerns. Allergies: Coded Allergies: No Known Allergies (12/28/17) PER PRE-OP ORDERS FROM [facility]. - 12/28/17 Significant Procedures: Right hip exploration and non-excisional irrigation and debridement Pertinent Lab Results: Patient : HA SCHUMACHER V Acct: [id number] DR: González Stanford MD Birthdate: [birth year] Age/Sex: 72/M Unit: [id number] Loc: [facility] 232- [phone] Status : ADM IN SPEC #: [id number] LUDA: 01/15/18 STATUS: COMP RECD: 01/15/[address]: González Stanford MD SOURCE: TRUNK/O.R. ENTR: 01/15/[address]: Magdi MALONEY,Nadeem Eckert SPDESC: HIP RIGHT ORDERED: TRUNK OR CULT COMMENT: ADDITIONAL INFORMATION: SUPERFICIAL SWAB BLOODY REC: RT HIP Procedure Result > GRAM STAIN Final 01/16/18-59 WHITE BLOOD CELLS FEW GRAM POSITIVE COCCI FEW > TRUNK AREA OR CULTURE Final 01/17/18 Heavy growth of: STAPH AUREUS ISOLATED REPORTED TO AND READ BACK BY: GILBERT AT 0836 01/16/18 LAB.SVCY. 1. STAPH AUREUS RX ABN ------ --- 1. STAPH AUREUS RX AB ------ -- CEFAZOLIN S AMOXICILLIN/CLAVULINIC ACID S AMPICILLIN/SULBACTAM S TETRACYCLINE S TRIMETHOPRIM/SULFAMETHOXAZOLE S AZITHROMYCIN R CLINDAMYCIN R ERYTHROMYCIN R OXACILLIN S VANCOMYCIN S Patient : HA SCHUMACHER V Acct: [id number] DR: González Stanford MD Birthdate: [birth year] Age/Sex: 72/M Unit: [id number] Loc: A 232 [id number] Status : ADM IN SPEC #: [id number] LUDA: 01/15/18 STATUS: COMP RECD: 01/15/[address]: González Stanford MD SOURCE: TRUNK/O.R. ENTR: 01/15/18 [facility] [address]: Nadeem Fairbanks MD SPDROLFC: HIP RIGHT ORDERED: TRUNK OR CULT COMMENT: ADDITIONAL INFORMATION: JOINT FLUID 2ML BLOODY RT HIP FLUID Procedure Result > GRAM STAIN Final 01/16/18-1001 WHITE BLOOD CELLS FEW OTHER NO ORGANISMS SEEN > TRUNK AREA OR CULTURE Final 01/18/18 NO GROWTH AFTER 3 DAYS Disposition Summary Disposition Principal Diagnosis: Right hip wound infection SP R DOMENIC on 12/29/17 Additional Diagnosis: none Discharge Disposition: home health services Discharge Instructions General Discharge Information Code Status: Full Code Patient's Diet: regular Patient's Activity: WBAT Follow-Up Instructions/Appts: FU with Dr. Stanford in 2 weeks Medications at Discharge Discharge Medications: Continue taking these medications: Amlodipine Besylate (Amlodipine Besylate) 5 MG TABLET 1 Tablet ORAL DAILY Comments: Last Taken:01/01/18 Time:9:14a.m Atenolol (Atenolol) 50 MG TABLET 0.5 Tablet ORAL TWICE DAILY Comments: Last Taken:01/01/18 Time:9:14A.M Gabapentin (Neurontin) 300 MG CAPSULE 1 Capsule ORAL THREE TIMES DAILY Comments: Last Taken:01/01/18 Time:5:13A.M Docusate Sodium (Colace) 100 MG CAPSULE 1 Capsule ORAL TWICE DAILY Qty = 14 Comments: Last Taken:01/01/18 Time:9;14A.M Polyethylene Glycol 3350 (Miralax) 17 GRAM POWD.PACK 1 Packet ORAL DAILY Qty = 7 Instructions: dissolve in water Comments: Last Taken:01/01/18 Time:9:14A.M Pantoprazole Sodium (Protonix) 20 MG TABLET.DR 1 Tablet ORAL DAILY Qty = 30 Comments: NOT GIVEN IN HOSPITAL Aspirin (Aspirin*) 325 MG TABLET 1 Tablet ORAL TWICE DAILY Qty = 60 Comments: Last Taken:01/01/18 Time:9:14A.M Hydromorphone HCl (Dilaudid) 2 MG TABLET 1-2 Tablet ORAL EVERY 4-6 HOURS as needed for PAIN Qty = 36 Comments: Last Taken:01/01/18 Time:9:14A.M Celecoxib (Celecoxib) 200 MG CAPSULE 1 Capsule ORAL TWICE DAILY Qty = 180 Chlorthalidone (Chlorthalidone) 25 MG TABLET 1 Tablet ORAL DAILY Qty = 30 Start taking the following new medications: Amoxicillin/Potassium Clav (Augmentin 875-125 Tablet) 875 MG-125 MG TABLET 1 Tablet ORAL TWICE DAILY Qty = 42 No Refills Instructions: complete 3 week course of antibiotics Copies To: Magdi MALONEY,Nadeem Eckert
== END 2018-01-18 13:00 | disposition home health service (06) | DRG 863 ==
LOC: 2NA 17:02 → ENTRNSPT 01-15 12:26 → EDTRNSPTSTS 01-15 12:29 → EDTRNSPT 01-15 12:29 → CMPTRNSPT 01-15 12:53 → 2NA 01-16 08:59 → ENPENDDIS 01-18 10:40 → ENTRNSPT 01-18 12:42 → EDTRNSPT 01-18 12:49 → EDTRNSPTSTS 01-18 12:49 → CMPTRNSPT 01-18 12:59 → 2NA 01-18 13:00
PROVIDERS: Physician Assistant Surgical
PROC: 3E10X8Z Irrigation of Skin and Mucous Membranes using Irrigating Substance (ICD-10-PCS; principal; 2018-01-15)
PROC: 0S9930Z Drainage of Right Hip Joint with Drainage Device, Percutaneous Approach (ICD-10-PCS; principal; 2018-01-15)
PROC: 3E0U329 Introduction of Other Anti-infective into Joints, Percutaneous Approach (ICD-10-PCS; principal; 2018-01-15)
DX: T81.4XXA Infection following a procedure, initial encounter (principal); E66.01 Morbid (severe) obesity due to excess calories; G62.9 Polyneuropathy, unspecified; L03.115 Cellulitis of right lower limb; Z68.41 Body mass index [BMI] 40.0-44.9, adult; G47.33 Obstructive sleep apnea (adult) (pediatric); Z91.19 Patient's noncompliance with other medical treatment and regimen; K21.9 Gastro-esophageal reflux disease without esophagitis; I10 Essential (primary) hypertension; R60.9 Edema, unspecified; M19.90 Unspecified osteoarthritis, unspecified site; Z79.82 Long term (current) use of aspirin; Z79.891 Long term (current) use of opiate analgesic; Z96.642 Presence of left artificial hip joint; Z87.891 Personal history of nicotine dependence; B95.61 Methicillin susceptible Staphylococcus aureus infection as the cause of diseases classified elsewhere
CPT/HCPCS: 2NAP; 2NASP; 87070; 87075; 87184; 36592; 82436; 87040; 87147; 93005; 93010; 93970; 97116-GO; 97161-GP; 97530-GO; J0131; J0690; J1644; J2405; J3370; J7040; J7042